=== PATIENT | female | born 1945 | race Caucasian/White ===

== ENCOUNTER 2018-11-05 11:17 | Emergency (ER) | payer MEDICARE, BC, SELFPAY ==
[2018-11-05 11:18] VITALS: BP 104/69; PULSE 99; RESP 16; TEMP 36.4; O2SAT 97; BMI 24.7
[2018-11-05 11:57] VITALS: BP 97/63; PULSE 90; RESP 30; O2SAT 99
--- NOTE | 2018-11-05 11:58 | ED.RN ---
pt insisted on going to the bathroom. pt walked to the bathroom with assistance. pt had an episode of syncope while in the bathroom. pt had tarry stool. pt also had bloody emesis. pt assisted to bed and put back on the monitor.
[2018-11-05 12:00] VITALS: BP 109/64; PULSE 76; RESP 14; O2SAT 99
--- NOTE | 2018-11-05 12:05 | EKG12_ITS ---
Test Reason : GI BLEED Blood Pressure : / mmHG Vent. Rate : 078 BPM Atrial Rate : 078 BPM P-R Int : 138 ms QRS Dur : 072 ms QT Int : 396 ms P-R-T Axes : 051 025 059 degrees QTc Int : 451 ms Normal sinus rhythm Normal ECG Confirmed by ALEJANDRA BRANNON, LAURA ([id number]), fashion editor DYLAN DELGADO ([id number]) on 11/07/2018 7:59:39 AM Referred By: KAMI Confirmed By:LAURA ROBERTS MD
--- NOTE | 2018-11-05 12:07 | RAD_ITS ---
STUDY: X-RAY CHEST REASON FOR EXAM: Female, 73 years old. Rectal bleeding, shortness of breath TECHNIQUE: AP COMPARISON: None. FINDINGS: EKG leads project over the chest. The lungs are clear and expanded. There is no demonstrated pleural abnormality. Normal size heart. Normal mediastinum and maría. Normal visualized pulmonary arteries. There is atherosclerotic calcification of the aortic arch with tortuosity. Normal visualized thoracic spine. Normal visualized ribs, clavicles, and shoulders. There is no demonstrated abnormality of the visualized soft tissue structures of the upper abdomen. RAD/Chest 1 View (Portable) IMPRESSION: Nonacute portable x-ray examination of the chest. Electronically Signed: Ben Askew MD at 12:36 EDT , Service support ,
[2018-11-05] MEDS: 0.9% Normal Saline 1,000 ML 1000 ML IV (12:11)
--- NOTE | 2018-11-05 12:20 | ED.DCSUM_ITS ---
- ER Visit Summary Date of Service: 11/05/18 Chief Complaint: [] Fatigue vomiting blood black stools History of Present Illness: The patient is a 73 F [] patient reports the last 24 hours she is noticed dark black stools then this morning she vomited quite a bit of red blood she became very fatigued, per medics were called she was brought to the hospital, on arrival she began vomiting coffee-ground material and she did pass quite a bit of black tarry stool while in the ED she had a near syncopal episode, did not injure herself, She indicates she has a history of hypertension that is relatively stable she takes a baby aspirin for general health purposes she has no history of upper versus lower GI bleeding, she has no cardiopulmonary disease, 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 She has no history of cardiovascular disorder Physical Examination: [] Blood pressure is 104/80 heart rate is 100 Black material in her mouth, the airway is intact she is in no distress, General, no distress resting comfortably HEENT is generally unremarkable The neck is supple no adenopathy Cardiovascular, regular rate and rhythm Lungs, clear bilateral Abdomen, soft nontender The rectal exam shows quite a bit of black tarry stool Extremities, no clubbing cyanosis or edema Neurologic, awake alert answering questions appropriately moving all 4 extremities Test Results: [] Emergency Department Course and Treatment: [] All the above we began IV fluids type and screen screening labs we do not have any GI service capability at this institution at this time, I spoke with the family they have agreed to transfer to [facility] I have contacted the transfer line and will arrange for transfer Treatment Plan: [] Patient's hemoglobin returns at 9 please see the full lab result panel chemistry panel unremarkable, no old labs in the computer for her but she has no known history of anemia, we are continuing to discuss with her the NG tube,, we spoke with [facility] ICU [facility] Dr. Garcia they accepted her in transfer, we are awaiting bed, will start IV Protonix continue IV fluids her chest x-ray was read as unremarkable any other pending studies will be to relate to the [facility] admitting team Disposition: [] Transfer to [facility] for treatment of upper GI bleed Impression: [] Upper GI bleed, syncope, anemia This note was generated with Vessel dictation software. It may contain incorrect words, spelling, and punctuation that were not noted in review of the chart prior to signing ED Disposition - Plan for ED Patient: Referrals: Clem Mims MD [Primary Care Provider] -
[2018-11-05 12:38] VITALS: BP 129/66; PULSE 76; RESP 16; O2SAT 100
--- NOTE | 2018-11-05 12:40 | RAD_ITS ---
STUDY: X-RAY CHEST REASON FOR EXAM: Female, 73 years old. Tube placement TECHNIQUE: Frontal view of the chest COMPARISON: 11/05/2018 FINDINGS: There is an enteric tube noted with its tip in the stomach. The lungs are clear. There are no pleural effusions. There is no pneumothorax. The heart is normal in size. The visualized osseous structures are within normal limits. RAD/Abdomen Single View (Portable) IMPRESSION: Enteric tube tip in the stomach. Electronically Signed: Jay Owens, at 13:19 EDT Tel , Service support ,
[2018-11-05 12:56] LABS: Absolute Lymphocyte Count 2.57 X10^3/ul (0.83-4.51); Absolute Neutrophil Count 7.8 X10^3/uL (2.0-7.7); Basophil# 0.02 X10^3/uL; Basophil% 0.2 % (0-1); Eosinophil# 0.08 X10^3/uL; Eosinophils% 0.7 % (0-5); Hematocrit 27.3 % (37-47); Hemoglobin 8.8 g/dl (12.0-15.0); Lymphocyte # 2.57 X10^3/ul (4.0); Mean Corp Hgb Conc 32.2 g/gl (32-36); Mean Corpuscular Hgb 29.8 pg (27.0-32.0); Mean Corpuscular Volume 92.5 fL (81-99); Mean Platelet Vol. 10.7 fl (6.2-12.0); Monocyte# 0.72 X10^3/uL; Monocyte% 6.4 % (0-10); Neutrophil # 7.76 X10^3/uL (2.7-7.7); Neutrophil % 69.5 % (47-70); Platelet Count 287 K/mm3 (150-450); RBC Distribution Width CV 14.4 % (11.6-14.6); RBC Distribution Width SD 48.8 fl (35.1-43.9); Red Blood Count 2.95 M/mm3 (4.2-5.4); White Blood Count 11.2 K/mm3 (4.4-11.0)
[2018-11-05 13:01] LABS: POSITIVE COUNT NO; POSITIVE DIFFERENTIAL NO; POSITIVE MORPHOLOGY NO
[2018-11-05 13:02] LABS: International Normalized Ratio 1.1; Prothrombin Time (Protime)PT. 13.7 SECONDS (11.7-14.9)
[2018-11-05 13:12] LABS: AST(SGOT) 23 U/L (15-37); Alanine Aminotransfer ALT/SGPT 14 U/L (13-56); Albumin, Serum 2.7 g/dL (3.2-5.0); Alkaline Phosphatase 35 U/L (45-117); Anion Gap 10 (5-15); BUN 48 mg/dL (7-18); BUN/Creat Ratio 61.4 RATIO (10-20); Bilirubin, Direct 0.09 mg/dL (0.00-0.30); Calcium,Total 6.8 mg/dL (8.5-10.1); Chloride 110 mmol/L (98-107); Creatinine, Serum 0.78 mg/dL (0.55-1.02); EST Glomerular Filtration Rate 77 mL/min (>60); Est Glom Filt Rate - Afr Amer 93 mL/min (>60); Estimated Creatinine Clearance 45.09 ml/min; Globulin 2.5 g/dL (2.2-4.2); Glucose 168 mg/dL (74-106); Lipase 199 U/L (73-393); Potassium 3.8 mmol/L (3.5-5.1); Protein, Total 5.2 g/dL (6.4-8.2); Sodium Level 140 mmol/L (136-145)
[2018-11-05 13:40] VITALS: BP 134/74; PULSE 72; RESP 16; O2SAT 99
== END 2018-11-05 14:16 | disposition short-term general hospital (02) ==
PROVIDERS: Emergency Provider Emergency Medicine; Family Provider Family Medicine; PCP Family Medicine
DX: K92.0 Hematemesis (principal); K92.1 Melena; R55 Syncope and collapse; D64.9 Anemia, unspecified; I10 Essential (primary) hypertension; Z79.82 Long term (current) use of aspirin; Z79.899 Other long term (current) drug therapy
CPT/HCPCS: 71045; 74018; 80048; 80076; 83690; 84484; 85025; 85610; 86850; 86900; 93005; 96361; 96374; 96376; 99285; J7030; A4216; J3490

== ENCOUNTER → 2019-12-28 07:39 | Outpatient (CLI) | payer MEDICARE, OTHER, SELFPAY ==
--- NOTE | 2019-12-28 08:05 | EKG12_ITS ---
Test Reason : PRE-OP Blood Pressure : / mmHG Vent. Rate : 061 BPM Atrial Rate : 061 BPM P-R Int : 174 ms QRS Dur : 080 ms QT Int : 422 ms P-R-T Axes : 074 007 059 degrees QTc Int : 424 ms Normal sinus rhythm Normal ECG Confirmed by MARINA DOSHI ([id number]), editor managing director NORMA HAYES ([id number]) on 12/31/2019 10:52:39 AM Referred By: Abraham Ashton Confirmed By:MARINA DOSHI
[2019-12-28 08:11] LABS: Hematocrit 38.2 % (37-47); Hemoglobin 12.3 g/dL (12.0-15.0); Mean Corp Hgb Conc 32.2 g/dL (32-36); Mean Corpuscular Hgb 30.4 pg (27.0-32.0); Mean Corpuscular Volume 94.6 fL (81-99); Mean Platelet Vol. 9.7 fl (6.2-12.0); Platelet Count 314 K/mm3 (150-450); RBC Distribution Width CV 13.5 % (11.6-14.6); Red Blood Count 4.04 M/mm3 (4.2-5.4)
[2019-12-28 08:36] LABS: Anion Gap 6 (5-15); BUN 21 mg/dL (7-18); BUN/Creat Ratio 27.3 RATIO (10-20); Calcium,Total 9.3 mg/dL (8.5-10.1); Chloride 105 mmol/L (98-107); Creatinine, Serum 0.77 mg/dL (0.55-1.02); EST Glomerular Filtration Rate 78 mL/min (>60); Est Glom Filt Rate - Afr Amer 94 mL/min (>60); Glucose 102 mg/dL (74-106); Potassium 4.4 mmol/L (3.5-5.1); Sodium Level 139 mmol/L (136-145)
== END ==
PROVIDERS: PCP Family Medicine; Referring Provider Orthopaedic Surgery; Visit Provider Orthopaedic Surgery
DX: Z01.818 Encounter for other preprocedural examination (principal); Z01.810 Encounter for preprocedural cardiovascular examination
CPT/HCPCS: 36415; 80048; 85027; 93005

== ENCOUNTER → 2019-12-31 11:20 | Outpatient (CLI) | payer MEDICARE, BC, SELFPAY | PROVIDERS: PCP Family Medicine; Visit Provider Orthopaedic Surgery | DX: Z11.59 Encounter for screening for other viral diseases (principal) | CPT/HCPCS: 87635; G2023; U0003 ==

== ENCOUNTER → 2021-01-19 16:38 | Outpatient (CLI) | payer MEDICARE, OTHER, SELFPAY ==
--- NOTE | 2021-01-19 16:41 | CT_ITS ---
INDICATION: LEVEL 16 NECK MASS EXAMINATION: CT Soft Tissue Neck W/ Contrast Injection TECHNIQUE: Helically acquired images were obtained of the neck following IV contrast. A radiation dose optimization technique was used for this scan. IV Contrast dosage and agent: 75 cc [id number] COMPARISON: None. FINDINGS: NASOPHARYNX: Unremarkable. SUPRAHYOID NECK: Unremarkable oropharynx, oral cavity, parapharyngeal space, and retropharyngeal space. INFRAHYOID NECK: Unremarkable larynx, hypopharynx, and supraglottis. THYROID: No focal lesions. SALIVARY GLANDS: In the left submandibular space either arising from or adjacent to the left submandibular gland there is a 2.5 x 1.8 cm hypodense oval well-circumscribed homogeneous soft tissue mass. LYMPH NODES: No cervical or supraclavicular lymphadenopathy. VASCULAR STRUCTURES: Moderate atherosclerotic disease of the bilateral carotid arteries.. VISUALIZED PORTIONS OF THE ORBITS, PARANASAL SINUSES, MASTOID AIR CELLS AND SKULL BASE: Unremarkable. BONES: Unremarkable. THORACIC INLET: Clear lung apices. CT/Soft Tissue Neck WITH Contrast IMPRESSION: 2.5 cm solid hypodense homogeneous mass within the left submandibular space. Differential includes salivary gland tumor such as pleomorphic adenoma as well as lymphoma. Recommend ultrasound-guided percutaneous biopsy. Electronically Signed: Cm Vitale MD at 17:01 EDT Tel , Service support ,
[2021-01-19 16:56] LABS: CREATININE FINGERSTICK 0.8 mg/dL (0.55-1.02); EGFR FINGERSTICK > 60.0000 mL/min (>60)
== END ==
PROVIDERS: PCP Family Medicine; Referring Provider Otolaryngology; Visit Provider Otolaryngology
DX: R22.1 Localized swelling, mass and lump, neck (principal)
CPT/HCPCS: 70491; Q9967

== ENCOUNTER → 2021-01-27 09:12 | Outpatient (CLI) | payer MEDICARE, OTHER, SELFPAY ==
--- NOTE | 2021-01-27 | IMM_PTH ---
PATIENT: VICKI WAYNE LOC: LAB U#:[id number] AGE/SX: 80/F ROOM: RE01/27/[address]: Dr. Cm Silver MD : 1945 BED: DIS: SPEC #: [id number] RECD: 01/28/21 12:40 STATUS: JORDEN REEdil #: [id number] JOHN: 01/27/21 00:[address]: Cm Silver DEPT: IMMUNOHISTOCHEMISTRY RECD BY: Marilee Lazo ENTERED: 01/28/21 12:44 SP TYPE: IMMUNO OTHR DR: Dr. Clem Mims MD Tissues: Mandible, NOS Procedures: BCL-2 (add) BCL-6 (add) CD10 (add) CD20 (add) CD43 (add) CD45 (add) CD5 (add) CD79A (add) CD3 (initial) PHYSICIAN [facility] INSTIT[facility] [address] [address] SPECIMEN INFORMATION: Tissue Source: Left submandibular gland Clinical Info: Left submandibular gland mass Specimen Number: [id number] CPT code: 67535, 25239 x8 METHODOLOGY: Deparaffinized sections of prefer/formalin-fixed tissue or PAP/DQ stained slides are incubated with monoclonal/polyclonal antibodies/oligonucleotide probes. Localization is made via biotin free immunoperoxidase method. Appropriate controls are performed and reacted as expected. Results on target cell population are indicated in the following table: RESULTS: ANTIBODY / CLONE RESULT CD3 (PS1) positive, rare CD5 (SP10) negative CD20 (L26) positive, rare CD43 (L60) negative CD45 (RP2/18) positive CD79a (11E3) positive CD10 (56C6) negative BCL-2 (bcl-2/100/D5) negative BCL-6 (FO129N/A8) negative These tests were developed and their performance characteristics determined by [facility]. They may not have been cleared or approved by the U.S. Food and Drug Administration. The FDA has determined that such clearance or approval is not necessary. The above immunohistochemical/dualISH markers are ordered and reviewed by the Pathologist. INTERPRETATION: Left submandibular gland, fine needle aspiration: Atypical B-cell neoplasm. AM:rajesh 01/29/2021 Comment: Please correlate with flow cytometry study from [facility] viewable in patient?s EMR.
--- NOTE | 2021-01-27 10:00 | ASPOS_PTH ---
PATIENT: VICKI WAYNE LOC: LAB U#:[id number] AGE/SX: 80/F ROOM: RE01/27/[address]: Dr. Cm Silver MD : 1945 BED: DIS: SPEC #: [id number] RECD: 01/27/21 12:57 STATUS: JORDEN REEdil #: [id number] JOHN: 01/27/21 10:[address]: Cm Silver DEPT: CYTOLOGY RECD BY: Saniya Sow ENTERED: 01/27/21 12:58 SP TYPE: ASP HERE OTHR DR: Dr. 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 See comment. AM:rajesh 01/29/2021 COMMENT The specimen is evaluated at the time of FNA by Dr. Sanchez. Immediate Evaluation = Polymorphic lymphocytes present. Flow cytometry analysis reveals a monoclonal B-cell population, CD10 positive that is consistent with a Bcell lymphoma of follicle center [place]. This case was reviewed in consultation with Dr. Orr of [facility]. Please see the complete consultative report in EMR. Immunohistochemistry ([id number]) supports the above diagnosis. Case has been reviewed in consultation with Dr. Livingston who concurs with the above diagnosis. IDC:[id number] CYTOLOGY STUDY Slides are reviewed. CYTOLOGY GROSS Received is 0.25 ml of reddish fluid labeled with the patient's name, and designated left submandibular gland. Three imprints and two paps are made from the submitted fluid and the rest is added to [employer] for cell block preparation. Submitted for cytology study. / AM:rajesh 01/27/2021 TC:0 CPT: 30611, 24522, 62387, 07135
== END ==
PROVIDERS: PCP Family Medicine; Referring Provider Otolaryngology; Visit Provider Otolaryngology
DX: R22.1 Localized swelling, mass and lump, neck (principal)
CPT/HCPCS: 10021; 88161; 88305; 88341; 88342

== ENCOUNTER → 2021-02-17 18:19 | Outpatient (CLI) | payer MEDICARE, OTHER, SELFPAY ==
--- NOTE | 2021-02-17 18:00 | PET_ITS ---
EXAMINATION: FDG PET-CT INDICATIONS: A 75-year-old female with reported history of lymphoma presenting for restaging examination. COMPARISON EXAMINATION: None available INDEX LESION SIZE LUGANO SCORE SUV INTERPRETATION Left lateral neck level II-A (n=1) 21.2 x 27.3-mm (frame 230) 5 14.3 Fulfills quantitative criteria for viable neoplasm TECHNIQUE: Following the intravenous administration of 14.0 mCi of F-18 deoxyglucose via the left antecubital fossa, multiplanar image acquisitions of the neck, chest, abdomen and pelvis to level of mid thigh, obtained at one hour post radiopharmaceutical administration contemporaneously interpreted with the current CT of the neck, chest, abdomen and pelvis, to level of mid thigh, dated 02/17/21 via coregistration reveals: BLOOD GLUCOSE LEVEL:?? 85 mg/dl? FINDINGS: 1. There is an asymmetric increase in FDG distribution defined in the left lateral neck involving level II-A in a single nodular focus. The calculated maximal standard uptake value is 14.3. The Lugano Deauville score is 5. The maximal axial diameter of the corresponding hypermetabolic soft tissue density on review of CT of the neck dated 02/17/21 is 21.2-mm (transverse) x 27.3-mm (AP). 2. Normal physiologic distribution of the radiopharmaceutical is apparent in the hepatic (2.9) and splenic parenchyma, both renal units, bladder and visualized intestinal tract. The visualized portion of the cerebral cortical-subcortical structures demonstrate symmetric and preserved glucose metabolism. Prominent tracer concentration is observed in the anterior neck, laryngeal structures, which appears associated with the cricopharyngeus musculature most consistent with physiologic tracer uptake. Pertinent CT findings are as follows: CHEST: There is atherosclerotic calcification defined in the thoracic aorta without evidence of dilatation-aneurysm formation. Coronary arterial calcification is observed. Bilateral subcentimeter axillary soft tissue densities with fatty hilus are non-glucose avid. There are no parenchymal densities-nodules defined in the right and left hemithorax with discernible quantitatively significant increased FDG concentration. ABDOMEN AND PELVIS: There is atherosclerotic calcification defined in the abdominal aorta without evidence of dilatation-aneurysm formation. Pelvic arterial calcification is defined. Colonic diverticulosis is encountered without evidence of diverticulitis. Peripelvic cyst formation is encountered in the left kidney. SKELETAL: Degenerative changes are noted in the cervical, thoracic and lumbar spine without evidence of increased radiopharmaceutical concentration. PET/PET/CT Tumor Base -Thigh Init IMPRESSION: 1. ABNORMAL EXAMINATION INDICATIVE OF MALIGNANT VIABLE NEOPLASM. 2. Increased glucose concentration observed in the left lateral neck in a single nodular focus fulfills quantitative criteria for viable neoplasm. (Gabriela et al, Journal of Clinical Oncology 32:3059, 2014). 3. No other quantitatively significant hypermetabolic abnormalities are noted. Electronic Signature Gerardo Baron D.O. Accurate Quantification of SUVs for this report are calculated using the exclusive [employer], (U.S. Patent No. [id number] [id number] 983). Standardization and correction of the FDG SUV metric exclusively available with [employer] intellectual property, allow for vendor non-specific objective quantitative sequential FDG PET-CT comparison and otherwise unobtainable optimization of the sensitivity and specificity of the examination. Electronically Signed: Gerardo Baron DO at 12:37 EDT Tel , Service support ,
== END ==
PROVIDERS: PCP Family Medicine; Referring Provider Internal Medicine Hematology & Oncology; Visit Provider Internal Medicine Hematology & Oncology
DX: C82.91 Follicular lymphoma, unspecified, lymph nodes of head, face, and neck (principal)
CPT/HCPCS: 78815; A9552